=== PATIENT | male | born 1940 | race Caucasian/White ===

== ENCOUNTER → 2017-04-15 | Outpatient (CLI) | payer MEDICARE, BC ==
--- NOTE | 2017-04-15 14:40 | RAD ---
EXAM: Renal/retroperitonal ultrasound HISTORY: Hematuria, left flank pain. COMPARISON: None. FINDINGS: Ultrasound of the kidneys, bladder and retroperitoneum was performed. The right kidney measures 10.1 cm. Cortical thickness and echogenicity are preserved. There is no hydronephrosis. The left kidney measures 12.4 cm. Cortical thickness and echogenicity are preserved. There is moderate left hydronephrosis. The left ureteral jet is not visualized. A point of obstruction is not demonstrated on this study. Images of the bladder a soft tissue echogenicity mass along the left and posterior wall of the bladder. Doppler demonstrates internal flow. This is concerning for urothelial malignancy. The region spans 6 cm. There is a large infrarenal abdominal aortic aneurysm measuring 7.0 x 6.3 cm. There is no evidence of acute rupture. Mural thrombus is noted. IMPRESSION: 1. Sessile 6 cm mass along the left and posterior wall of the bladder concerning for urothelial malignancy. Cystoscopy could further evaluate. 2. Moderate left hydronephrosis consistent with associated ureteral obstruction. 3. Large infrarenal abdominal aortic aneurysm measuring 7.0 x 6.3 cm. This is at risk for rupture given its size. Ongoing management is recommended. These findings were called to the office of the referring physician on 04/15/2017 at 1430.
== END | disposition home or self-care (01) ==
LOC: US 12:38
PROVIDERS: ATTEND Nurse Practitioner Family
DX: I71.4 Abdominal aortic aneurysm, without rupture (principal); N13.30 Unspecified hydronephrosis; N13.5 Crossing vessel and stricture of ureter without hydronephrosis; R31.9 Hematuria, unspecified
CPT/HCPCS: 76770